=== PATIENT | female | born 1935 | race Caucasian/White ===

== ENCOUNTER 2020-05-06 14:20 | Outpatient (REF) | payer MEDICARE, SELFPAY ==
--- NOTE | 2020-05-07 08:47 | MHC.AU.P13 ---
Adult Audiological Evaluation Date of Visit: 05/06/20 Reason for Appointment: Patient has been experiencing increasing difficulty hearing in daily conversation. She reports that her left ear is worse. She consulted an Ear, Nose, and Throat doctor years ago, who stated there was a problem with the bones of the left middle ear and that surgery may improve it. She did not elect to have the surgery at that time. 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 Medical History: Medical History: Headache, High Blood Pressure, Measles, Migraines, Scarlet Fever Otoscopy: Right Ear: Unremarkable Left Ear: Unremarkable Tympanometry: Right Ear: Normal Middle Ear System (Type A) Left Ear: Normal Middle Ear System (Type A) Hearing Evaluation: Transducer(s) Used: Insert Earphones, Bone Conduction Method: Conventional Audiometry Stimuli Used: Pure Tones Right Ear: Description of Hearing: Mild sloping to profound sensorineural hearing loss Left Ear: Description of Hearing: Mild/moderate sloping to profound sensorineural hearing loss Speech Recognition Threshold (SRT): Method Used: Recorded Lists Stimuli Used: Spondee Words Right Ear: 45 dBHL Left Ear: 55 dBHL Word Discrimination: Method: Recorded Lists Word Lists Used: NU-6 Right Ear: 68% at 75 dBHL Left Ear: 72% at 75 dBHL Most Comfortable Level (MCL): Right Ear: 75 dBHL Left Ear: 75 dBHL Recommendations: Audiological re-evaluation in one year. Trial with amplification is recommended. Patient is interested in amplification. She was told her insurance plan may start offering hearing aid benefits next year. She would like to wait until June and see what the benefit entails. Discussed that our clinic does not bill insurance directly for hearing aids; however, she can ask her insurance if they offer reimbursement for hearing aid purchases. Patient is welcome to schedule a hearing aid evaluation when she is ready to pursue amplification. Diagnosis: Primary Diagnosis: H90.3 Bilateral Sensorineural Hearing Loss Services Performed: Services Performed: Comprehensive Audiological Evaluation (CPT 17733) Tympanometry (CPT 78647) Signature: Provider: Isaias Paulino, CCC-A
== END 2020-05-06 14:21 | disposition home or self-care (01) ==
LOC: HO.SH 14:20
PROVIDERS: PCP Internal Medicine; Referring Provider Internal Medicine; Visit Provider Internal Medicine
DX: H90.3 Sensorineural hearing loss, bilateral (principal)
CPT/HCPCS: 92557; 92567

== ENCOUNTER 2021-03-03 08:44 | Emergency (ER) | payer MEDICARE, SELFPAY ==
[2021-03-03 09:22] VITALS: BP 169/72; PULSE 60; RESP 16; TEMP 36.8; O2SAT 96; BMI 27.4
--- NOTE | 2021-03-03 09:38 | ED_ITS ---
HPI - Wound/Laceration General Chief Complaint: Wound/Laceration Stated Complaint: finger laceration Time Seen by Provider: 03/03/21 09:36 Source: patient and family Mode of arrival: ambulatory Limitations: no limitations History of Present Illness HPI narrative: 86-year-old female presenting to the ED with complaints of a laceration to the left pinky finger while she was cutting onions to make spaghetti sauce prior to arrival. She reports that she is not up-to-date on tetanus. She denies any other injuries complaints or concerns at this time. Onset (ago): minute(s) (Prior to arrival) Extremity Location: left: hand (Pinky distal tip) Place: home Patient tetanus UTD: No Context: accidental Associated symptoms: pain Related Data Allergies Allergy/AdvReac Type Severity Reaction Status Date / Time acetaminophen [From Percocet] Allergy Unknown Verified 03/03/21 09:21 oxycodone [From Percocet] Allergy Unknown Verified 03/03/21 09:21 prednisone Allergy Unknown Verified 03/03/21 09:22 simvastatin [From Zocor] Allergy Unknown Verified 03/03/21 09:22 Review of Systems Review of Systems: Constitutional : No Fever, No Chills, Cardiovascular : No Chest Pain, No SOB Respiratory : No Dyspnea Gastrointestinal : No abdominal pain Musculoskeletal : No Joint Swelling Skin : positive skin laceration, No Foreign bodies, No rash, No surrounding erythema Neuro : No Weakness, No Numbness/tingling Psych : No SI/HI/thoughts of self injury Yes all other systems are reviewed and are negative REPLACED BY [facility] Past Medical History Attestation statement: The following information was validated with the patient. Medical History High cholesterol HTN (hypertension) Social History Social History Advance Directives: Yes Advance Directives Information Provided: No Advance Directives on File: No Physical Exam Vital Signs: Vital Signs: Last Vital Signs Temp 98.2 F 03/03/21 09:22 Pulse 60 03/03/21 09:22 Resp 16 03/03/21 09:22 BP 169/72 H 03/03/21 09:22 Pulse Ox 96 03/03/21 09:22 Body Mass Index 27.4 vital signs have been reviewed as normal and appeared to be correct. Blood p ressure normal. Heart rate normal. Respiration rate normal. Temperature normal. Oxygen saturation normal. Appearance: Alert. Oriented X3. No acute distress. Head: Normal external exam. Normocephalic. Atraumatic. Eyes: PERRLA. EOMI. Conjunctiva and sclera normal. Eyelids normal. ENT: Pharynx normal. Uvula midline. Moist mucous membranes. Neck: Normal inspection. Neck supple. FROM. No adenopathy. Thyroid Normal. No meningeal signs. No neck mass noted. CVS: Normal heart rate and rhythm. Heart sound normal. Pulses normal throughout. No murmurs/rales/gallops. Respiratory: No respiratory distress. Painless inspiration. Back: Full range of motion noted. No rashes/lesion/induration/fluctuance or signs of infection noted. Skin: Skin warm and dry. Normal skin color. Normal skin turgor. To left pinky finger at the distal tip patient has superficial avulsion with active bleeding no foreign bodies and no nail involvement. No rashes/lesions noted. Extremities: Patient does not have any bony tenderness to any of her fingers. Extremities exhibit normal range of motion. Extremities nontender. Neuro: Oriented X 3. No motor deficit. No sensory deficit. Reflexes normal. Normal steady gait. No focal neuro deficits noted. Vascular: + radial pulses. Normal cap refill. No cyanosis noted to upper extremity nails Course Course Course Narrative: 86-year-old female presenting to the ED who is currently on a baby aspirin no other blood thinners with complaints of avulsion laceration to the left pinky finger at the distal tip while she was cutting onions prior to arrival. She is not up-to-date on tetanus. On exam patient has some active bleeding therefore Surgicel was applied and nonadherent dressing. No further active bleeding noted. Patient's tetanus updated at this time. No imaging indicated at this time as patient does not have any bony tenderness and has full range of motion and no ligamentous laxity is noted. No nail bed or nail involvement. Will DC home with symptomatic treatment instructions to soak her finger in 3-5 days to remove the Surgicel and to return if any new or worsening symptoms. Patient understands agrees with this plan. MDM - Wound/Laceration Medical Records Attestation: I reviewed the patient's medical records. Discharge Plan Discharge Clinical Impression: Avulsion of skin Patient Disposition: Home, Self-Care Instructions: Skin Avulsion (ED) Additional Instructions: In approximately 3-5 days you should soak your finger after removing the white bulky dressing and water and let the rest of the dressing come off on its own. Return if any new or worsening symptoms. Follow up with her primary care provider. Referrals: Foster Garcia MD [Primary Care Provider] - 2 days Print Language: Kiswahili
[2021-03-03] MEDS: Diphth,Pertus(ACell),Tet Adult 0.5 ML SYRINGE IM (09:54)
== END 2021-03-03 10:03 | disposition home or self-care (01) ==
PROVIDERS: Emergency Provider Emergency Medicine; PCP Internal Medicine
DX: S61.217A Laceration without foreign body of left little finger without damage to nail, initial encounter (principal); M79.642 Pain in left hand; W26.0XXA Contact with knife, initial encounter; Y93.G3 Activity, cooking and baking; Y92.000 Kitchen of unspecified non-institutional (private) residence as the place of occurrence of the external cause; Y99.9 Unspecified external cause status; Z79.899 Other long term (current) drug therapy
CPT/HCPCS: 90471; 90715; 99283; 99284